=== PATIENT | male | born 1935 | race Two or more races ===

== ENCOUNTER 2022-03-25 11:26 | Emergency (ER) | payer BC ==
[~2022-03-25] VITALS: Ht 170.2 cm; Wt 54.4 kg
--- NOTE | 2022-03-25 11:45 | NUR ---
CLARENCE NINA from [facility] "Weak, was recently seen in [facility] and dc Dx Sepsis- today weaker than usual. Initial BP 88. Given 500NS". TO ER BED 7.
--- NOTE | 2022-03-25 11:58 | NUR ---
LFA #20 SAP FUNCTIONAL ANALYST, NS IVF INFUSING
[2022-03-25] MEDS ORDERED: IV NS 0.9% 1,000 ML BAG IV ONE (12:00)
--- NOTE | 2022-03-25 12:00 | NUR ---
TECH AT BEDSIDE FOR EKG
--- NOTE | 2022-03-25 12:13 | NUR ---
PHLEB AT BEDSIDE FOR BLOOD DRAW
[2022-03-25 12:28] LABS: BASOPHILS % (AUTO) 0.3 % (0.0-2.0); EOSINOPHILS % (AUTO) 0.1 % (0.0-6.0); HEMATOCRIT 34 % (39-51); HEMOGLOBIN 10.9 g/dL (13.5-17.5); LYMPHOCYTES # (AUTO) 0.8 K/uL (0.8-4.8); LYMPHOCYTES % (AUTO) 7.2 % (20.0-44.0); MEAN CORPUSCULAR HGB CONC 32 g/dl (31.0-36.0); MEAN CORPUSCULAR VOLUME 97 fL (80-96); MONOCYTES # (AUTO) 0.8 K/uL (0.1-1.30); MONOCYTES % (AUTO) 7.2 % (2.0-12.0); NEUTROPHILS # (AUTO) 9.9 K/uL (1.8-8.9); NEUTROPHILS % (AUTO) 85.2 % (43.0-81.0); PLATELET COUNT (AUTO) 250 K/uL (150-450); RED BLOOD CELL COUNT(AUTO) 3.57 MIL/uL (4.5-6.0); WHITE BLOOD COUNT (AUTO) 11.6 K/uL (4.3-11.0)
--- NOTE | 2022-03-25 12:28 | NUR ---
URINE SAMPLE COLLECTED AND SENT TO LAB
[2022-03-25 12:43] LABS: ALANINE AMINOTRANSFERASE 12 U/L (12-78); ALBUMIN 1.6 g/dL (3.4-5.0); ALKALINE PHOSPHATASE 92 U/L (46-116); ASPARTATE AMINOTRANSFERASE 35 U/L (15-37); BILIRUBIN,DIRECT 0.2 mg/dL (0.0-0.2); BILIRUBIN,TOTAL 0.4 mg/dL (0.2-1.0); CALCIUM, SERUM 8.4 mg/dL (8.5-10.1); CARBON DIOXIDE 26 mmol/L (21-32); CHLORIDE 105 mmol/L (98-107); CREATININE 1.7 mg/dL (0.6-1.3); GLUCOSE 106 mg/dL (74-106); POTASSIUM 4.9 mmol/L (3.5-5.1); SODIUM SERUM 138 mmol/L (136-145); TOTAL PROTEIN, SERUM 5.5 g/dL (6.4-8.2); UREA NITROGEN, BLOOD 22 mg/dL (7-18)
--- NOTE | 2022-03-25 12:50 | NUR ---
LAC ACID 2.3 DR SMALLWOOD MADE AWARE
--- NOTE | 2022-03-25 12:52 | NUR ---
[facility] ([facility]) [phone]
[2022-03-25 12:54] LABS: BILIRUBIN,URINE 1+ (NEGATIVE); COLOR,URINE YELLOW (YELLOW); LEUKOCYTE ESTERASE ,URINE NEGATIVE (NEGATIVE); NITRITE, URINE NEGATIVE (NEGATIVE); PH,URINE 6.5 (5.0-8.0); PROTEIN,URINE TRACE mg/dl (NEGATIVE); UGLUCOSE NEGATIVE (NEGATIVE)
[2022-03-25 13:40] LABS: BACTERIA,URINE Few /HPF (None Seen); SQUAMOUS EPITHELIAL CELL,UR Few /HPF (None Seen); WBC,URINE 0-2 /HPF (0-3)
--- NOTE | 2022-03-25 14:56 | NUR ---
SPOKE W/ LOUIE, NURSE/FINANCE EFFECTIVENESS MANAGER AT [facility] AND CONFIRMED STATUS OF PT AT THEIR FACILITY. ADDRESS: [address] [place] [address].
--- NOTE | 2022-03-25 14:57 | NUR ---
Obtained baseline pt report from [facility]; stated that pt had stroke previously and had left-sided weakness. Hx of dementia also per report.
--- NOTE | 2022-03-25 15:01 | NUR ---
CALLED [facility] FOR TRANSPORT ETA [phone]
--- NOTE | 2022-03-25 16:00 | NUR ---
IV removed. Catheter intact and site benign. Pressure and 4x4 applied to site. No bleeding noted.
--- NOTE | 2022-03-25 16:34 | NUR ---
PT REPORT GIVEN TO LOUIE, NURSE/ADMIN AT [facility] [phone]
--- NOTE | 2022-03-25 16:35 | NUR ---
EMT AT BEDSIDE TO PICKUP PT; ENDORSEMENT GIVEN.
--- NOTE | 2022-03-25 16:40 | NUR ---
Patient discharged to [facility] via gurney in stable condition, accompanied by 3 grain receiver. Written and verbal after care instructions given. Patient unable to sign d/c instructions but spoke w/ nurse/admin at care facility during report.
[2022-03-25 17:02] VITALS: BP 99/64
--- NOTE | 2022-03-25 18:03 | NUR ---
CALLED [facility] ([facility]) AND EXPLAINED THAT PT WAS DISCHARGED FROM THE ER BY DR SMALLWOOD. DTR WAS FURIOUS THAT PT WAS DISCHARGED FROM THE HOSPITAL AND WANTS PT TO BE TRANSFERRED AGAIN. INFORMED DTR THAT STAFF WILL CALL CARE FACILITY WHERE PT WAS DISCHARGED TO, TO TRANSFER PT AGAIN TO THE HOSPITAL. DTR WAS OKAY WITH THAT PLAN AT THIS TIME.
--- NOTE | 2022-03-25 18:09 | NUR ---
CALLED LOUIE FROM [facility] AND INFORMED HIM THAT THEY CAN TRANSFER PT AGAIN TO THE HOSPITAL VIA TRANSPORTATION OF THEIR CHOICE.
== END 2022-03-25 17:02 ==
LOC: ER 13:22
DX: R41.82 Altered mental status, unspecified (principal); Z20.822 Contact with and (suspected) exposure to COVID-19
CPT/HCPCS: 99285; 96360; 71045; 87426; 93005; 84145; 85025; 80048; 87040 ×2; 87086; 83605 ×2; 80076; 81001; 36415; 84484; 85730; J7030; C9803